=== PATIENT | male | born 1935 | race Caucasian/White ===

== ENCOUNTER 2020-04-11 04:36 | Day surgery (SDC) | payer OTHER, MEDICARE ==
[2020-04-08 16:34] VITALS: BMI 25.8
[2020-04-11] MEDS ORDERED: LIDOCAINE HCL/PF 2% SDV 5ML VIAL INF ONE (14:04)
[2020-04-11] MEDS ORDERED: BUPIVACAINE HCL/PF 0.75% 10 ML VIAL NR ONE (14:05)
[2020-04-11] MEDS ORDERED: IOHEXOL 180 MG/1 ML ML IJ ONE (14:05)
[2020-04-11 14:36] VITALS: TEMP 98
[2020-04-11 15:21] VITALS: BP 133/81; PULSE 63
== END 2020-04-11 15:05 | disposition home or self-care (01) ==
LOC: JASU-SURG 04:36
PROVIDERS: ATTEND Pain Medicine Pain Medicine
PROC: 3E0T33Z Introduction of Anti-inflammatory into Peripheral Nerves and Plexi, Percutaneous Approach (ICD-10-PCS; 2020-04-11)
PROC: 3E0T3BZ Introduction of Anesthetic Agent into Peripheral Nerves and Plexi, Percutaneous Approach (ICD-10-PCS; principal; 2020-04-11 14:30)
DX: M47.816 Spondylosis without myelopathy or radiculopathy, lumbar region (principal)
CPT/HCPCS: 76000-TC-FY

== ENCOUNTER 2020-05-09 04:36 | Day surgery (SDC) | payer OTHER, MEDICARE ==
[2020-05-07 15:44] VITALS: BMI 25.8
[2020-05-09] MEDS ORDERED: LIDOCAINE HCL 1% PRESERVATIVE FREE - 30ML VIAL IJ ONE (12:50)
[2020-05-09] MEDS ORDERED: BUPIVACAINE HCL/PF 0.75% 10 ML VIAL NR ONE (12:50)
[2020-05-09] MEDS ORDERED: IOHEXOL 180 MG/1 ML ML IJ ONE (12:50)
[2020-05-09 15:19] VITALS: BP 130/70; PULSE 68; TEMP 97.8
== END 2020-05-09 14:30 | disposition home or self-care (01) ==
LOC: JASU-SURG 04:36
PROVIDERS: ATTEND Pain Medicine Pain Medicine
PROC: BR16YZZ Fluoroscopy of Lumbar Facet Joint(s) using Other Contrast (ICD-10-PCS; 2020-05-09)
PROC: 3E0T3BZ Introduction of Anesthetic Agent into Peripheral Nerves and Plexi, Percutaneous Approach (ICD-10-PCS; principal; 2020-05-09 12:00)
DX: M47.816 Spondylosis without myelopathy or radiculopathy, lumbar region (principal)
CPT/HCPCS: 76000-TC-FY

== ENCOUNTER 2022-05-12 20:13 | Inpatient (IN) | payer OTHER, MEDICARE ==
[2022-05-12 20:30] VITALS: BMI 26.5
[2022-05-12] MEDS ORDERED: LACTATED RINGERS SOLUTION 1000 ML INFUS.BAG IV ONE (21:42)
[2022-05-12] MEDS ORDERED: ACETAMINOPHEN 1000 MG/100 ML BAG IVPB ONE (21:43)
[2022-05-12 21:54] LABS: VENOUS BASE EXCESS 2.1 mmol/L (-2-2); VENOUS O2 SATURATION 34.2 % (70-80); VENOUS PCO2 54.1 mmHg (38-52); VENOUS PH 7.348 (7.310-7.410)
[2022-05-12 22:03] LABS: BASO % 0.4 % (0-2.0); EOS % 1.1 % (0-4.5); HEMATOCRIT 45.3 % (35.4-49); LYMPH % 16.9 % (8-40); MCH 30.9 pg (25.7-33.7); MEAN CELL VOLUME 93.7 fl (80-96); MEAN PLT VOLUME 9.1 fl (7.5-11.1); NEUT % 71.6 % (42.8-82.8); PLATELET COUNT 195 10^3/uL (134-434); RBC 4.84 M/mm3 (4.00-5.60); RDW 15.2 % (11.9-15.9)
[2022-05-12] MEDS ORDERED: ACETAMINOPHEN INJECTION 100 ML IVPB ONE (22:08)
[2022-05-12 22:14] LABS: CALCIUM 9.8 mg/dL (8.5-10.1)
[2022-05-12 22:15] LABS: ALBUMIN 2.9 g/dl (3.4-5.0); BLOOD UREA NITROGEN 18.2 mg/dL (7-18); MAGNESIUM 2.3 mg/dL (1.8-2.4)
[2022-05-12 22:18] LABS: CREATININE 0.9 mg/dL (0.55-1.3); INR 1.05 (0.83-1.09); PROTHROMBIN TIME (PATIENT) 12.2 SEC (9.7-13.0)
[2022-05-12 22:20] LABS: BILIRUBIN,TOTAL 0.5 mg/dL (0.2-1)
[2022-05-12 22:21] LABS: ACTIVATED PTT 32.9 SECONDS (25.2-36.5)
[2022-05-12 23:15] LABS: EPI CELLS 3 /uL (0-25.1); HYALINE CASTS 0 /uL (0-3.1); URINE APPEARANCE CLEAR; URINE BACTERIA 2 /uL (0-1359); URINE BILIRUBIN NEGATIVE (NEGATIVE); URINE COLOR YELLOW; URINE GLUCOSE (UA) NEGATIVE (NEGATIVE); URINE KETONE NEGATIVE (NEGATIVE); URINE LEUK ESTERASE NEGATIVE (NEGATIVE); URINE NITRITE NEGATIVE (NEGATIVE); URINE PROTEIN NEGATIVE (NEGATIVE); URINE RBC 40 /uL (0-23.9); URINE WBC 3 /uL (0-25.8)
[2022-05-13] MEDS ORDERED: morphine CARPU-JECT 2 MG/1 ML DISP.SYRIN IVPUSH ONE (00:59)
[2022-05-13] MEDS ORDERED: ACETAMINOPHEN 325 MG TABLET (FP) PO PRN (01:10)
[2022-05-13] MEDS ORDERED: SODIUM CHLORIDE 0.45% 1,000 ML IV SCH (01:15)
[2022-05-13 07:26] LABS: CALCIUM 9.5 mg/dL (8.5-10.1)
[2022-05-13 07:27] LABS: ALBUMIN 2.5 g/dl (3.4-5.0); BLOOD UREA NITROGEN 17.9 mg/dL (7-18)
[2022-05-13 07:30] LABS: CREATININE 0.8 mg/dL (0.55-1.3)
[2022-05-13 07:31] LABS: BILIRUBIN,TOTAL 0.7 mg/dL (0.2-1)
[2022-05-13 07:32] LABS: TOT PROT 5.9 g/dl (6.4-8.2)
[2022-05-13] MEDS: MEMANTINE HCL 10 MG TABLET (FP) PO SCH ×2 (11:15→21:44)
[2022-05-13] MEDS: ENZALUTAMIDE 80 MG PO SCH (20:24)
[2022-05-13] MEDS: HEPARIN NA (PORCINE) 5,000 UNITS/ML 1ML VIAL SQ SCH (21:44)
[2022-05-14] MEDS ORDERED: GABAPENTIN 100 MG CAPSULE PO SCH (06:00)
[2022-05-14] MEDS: GABAPENTIN 100 MG CAPSULE PO SCH ×3 (06:27→22:56)
[2022-05-14] MEDS: HEPARIN NA (PORCINE) 5,000 UNITS/ML 1ML VIAL SQ SCH ×2 (10:00→22:56)
[2022-05-14] MEDS ORDERED: PATIENT'S OWN MEDICATION (NON-FORMULARY) (Enzalutamide [Xtandi] 80 MG Tablet) PO SCH (10:00)
[2022-05-14] MEDS ORDERED: METHIMAZOLE 10 MG TABLET PO SCH (10:00)
[2022-05-14] MEDS: MEMANTINE HCL 10 MG TABLET (FP) PO SCH ×2 (10:00→22:56)
[2022-05-14] MEDS: ENZALUTAMIDE 80 MG PO SCH (10:00)
[2022-05-14] MEDS: METHIMAZOLE 5 MG TABLET PO SCH (14:34)
[2022-05-15] MEDS: GABAPENTIN 100 MG CAPSULE PO SCH ×3 (06:32→21:38)
[2022-05-15] MEDS: HEPARIN NA (PORCINE) 5,000 UNITS/ML 1ML VIAL SQ SCH ×2 (09:43→21:39)
[2022-05-15] MEDS: MEMANTINE HCL 10 MG TABLET (FP) PO SCH ×2 (09:44→21:38)
[2022-05-15] MEDS: METHIMAZOLE 5 MG TABLET PO SCH (09:44)
[2022-05-15] MEDS: ENZALUTAMIDE 80 MG PO SCH (09:45)
[2022-05-16] MEDS: GABAPENTIN 100 MG CAPSULE PO SCH ×3 (06:06→21:29)
[2022-05-16] MEDS: HEPARIN NA (PORCINE) 5,000 UNITS/ML 1ML VIAL SQ SCH ×2 (09:55→21:30)
[2022-05-16] MEDS: MEMANTINE HCL 10 MG TABLET (FP) PO SCH ×2 (09:56→21:29)
[2022-05-16] MEDS: METHIMAZOLE 5 MG TABLET PO SCH (09:57)
[2022-05-16] MEDS: ENZALUTAMIDE 80 MG PO SCH (09:58)
[2022-05-17] MEDS: GABAPENTIN 100 MG CAPSULE PO SCH ×2 (05:37→13:25)
[2022-05-17] MEDS: METHIMAZOLE 5 MG TABLET PO SCH (10:17)
[2022-05-17] MEDS: HEPARIN NA (PORCINE) 5,000 UNITS/ML 1ML VIAL SQ SCH (10:19)
[2022-05-17] MEDS: MEMANTINE HCL 10 MG TABLET (FP) PO SCH (10:19)
[2022-05-17] MEDS: ENZALUTAMIDE 80 MG PO SCH (10:20)
[2022-05-17] MEDS: CEFTRIAXONE 1 GM in DEXTROSE 5%-WATER - 50 ML IVPB SCH (12:33)
[2022-05-17 15:56] LABS: BASO % 0.3 % (0-2.0); EOS % 1.5 % (0-4.5); HEMATOCRIT 37.5 % (35.4-49); HEMOGLOBIN 12.5 GM/dL (11.7-16.9); LYMPH % 14.9 % (8-40); MCH 29.9 pg (25.7-33.7); MCHC 33.3 g/dl (32.0-35.9); MEAN CELL VOLUME 89.6 fl (80-96); MEAN PLT VOLUME 9.3 fl (7.5-11.1); MONO % 10.1 % (3.8-10.2); NEUT % 73.2 % (42.8-82.8); PLATELET COUNT 196 10^3/uL (134-434); RBC 4.19 M/mm3 (4.00-5.60); RDW 14.6 % (11.9-15.9); WHITE BLOOD COUNT 5.5 K/mm3 (4.0-10.0)
[2022-05-17 16:21] LABS: CALCIUM 9.1 mg/dL (8.5-10.1)
[2022-05-17 16:22] LABS: ALBUMIN 2.3 g/dl (3.4-5.0); BLOOD UREA NITROGEN 17.1 mg/dL (7-18)
[2022-05-17 16:25] LABS: CREATININE 0.9 mg/dL (0.55-1.3)
[2022-05-17 16:26] LABS: BILIRUBIN,TOTAL 0.4 mg/dL (0.2-1)
[2022-05-17 16:27] LABS: TOT PROT 5.7 g/dl (6.4-8.2)
[2022-05-18] MEDS: MEMANTINE HCL 10 MG TABLET (FP) PO SCH ×3 (10:49→21:55)
[2022-05-18] MEDS: ENZALUTAMIDE 80 MG PO SCH (10:50)
[2022-05-18] MEDS: METHIMAZOLE 5 MG TABLET PO SCH (10:51)
[2022-05-18] MEDS: CEFTRIAXONE 1 GM in DEXTROSE 5%-WATER - 50 ML IVPB SCH (10:52)
[2022-05-18] MEDS: HEPARIN NA (PORCINE) 5,000 UNITS/ML 1ML VIAL SQ SCH ×3 (10:53→23:31)
[2022-05-18] MEDS: GABAPENTIN 100 MG CAPSULE PO SCH ×4 (13:28→23:32)
[2022-05-19] MEDS: GABAPENTIN 100 MG CAPSULE PO SCH ×3 (06:11→21:57)
[2022-05-19] MEDS: CEFTRIAXONE 1 GM in DEXTROSE 5%-WATER - 50 ML IVPB SCH (09:24)
[2022-05-19] MEDS: ENZALUTAMIDE 80 MG PO SCH (09:25)
[2022-05-19] MEDS: METHIMAZOLE 5 MG TABLET PO SCH (09:25)
[2022-05-19] MEDS: HEPARIN NA (PORCINE) 5,000 UNITS/ML 1ML VIAL SQ SCH ×2 (09:25→21:56)
[2022-05-19] MEDS: MEMANTINE HCL 10 MG TABLET (FP) PO SCH ×2 (09:25→21:56)
[2022-05-20] MEDS: GABAPENTIN 100 MG CAPSULE PO SCH ×3 (06:48→21:57)
[2022-05-20] MEDS: ENZALUTAMIDE 80 MG PO SCH (10:35)
[2022-05-20] MEDS: HEPARIN NA (PORCINE) 5,000 UNITS/ML 1ML VIAL SQ SCH (10:35)
[2022-05-20] MEDS: MEMANTINE HCL 10 MG TABLET (FP) PO SCH ×2 (10:35→21:58)
[2022-05-20] MEDS: CEFTRIAXONE 1 GM in DEXTROSE 5%-WATER - 50 ML IVPB SCH (10:35)
[2022-05-20] MEDS: METHIMAZOLE 5 MG TABLET PO SCH (10:36)
[2022-05-21] MEDS: GABAPENTIN 100 MG CAPSULE PO SCH ×3 (06:24→21:33)
[2022-05-21] MEDS: METHIMAZOLE 5 MG TABLET PO SCH (09:17)
[2022-05-21] MEDS: MEMANTINE HCL 10 MG TABLET (FP) PO SCH ×2 (09:17→21:33)
[2022-05-21] MEDS: CEFTRIAXONE 1 GM in DEXTROSE 5%-WATER - 50 ML IVPB SCH (09:18)
[2022-05-21] MEDS: ENZALUTAMIDE 80 MG PO SCH (09:20)
[2022-05-21 23:49] VITALS: RESP 18
[2022-05-22] MEDS: GABAPENTIN 100 MG CAPSULE PO SCH ×3 (05:23→22:23)
[2022-05-22] MEDS: MEMANTINE HCL 10 MG TABLET (FP) PO SCH ×2 (10:10→22:23)
[2022-05-22] MEDS: ENZALUTAMIDE 80 MG PO SCH ×2 (10:12→10:15)
[2022-05-22] MEDS: CEFTRIAXONE 1 GM in DEXTROSE 5%-WATER - 50 ML IVPB SCH (10:12)
[2022-05-22] MEDS: METHIMAZOLE 5 MG TABLET PO SCH (10:13)
[2022-05-22] MEDS: ENZALUTAMIDE 40 MG PO SCH (14:31)
[2022-05-23] MEDS: GABAPENTIN 100 MG CAPSULE PO SCH ×3 (06:36→23:31)
[2022-05-23] MEDS: MEMANTINE HCL 10 MG TABLET (FP) PO SCH ×2 (10:03→23:31)
[2022-05-23] MEDS: ENZALUTAMIDE 40 MG PO SCH (10:03)
[2022-05-23] MEDS: CEFTRIAXONE 1 GM in DEXTROSE 5%-WATER - 50 ML IVPB SCH (10:03)
[2022-05-23] MEDS: METHIMAZOLE 5 MG TABLET PO SCH (10:03)
[2022-05-24] MEDS: GABAPENTIN 100 MG CAPSULE PO SCH ×4 (06:37→21:32)
[2022-05-24] MEDS: MEMANTINE HCL 10 MG TABLET (FP) PO SCH ×2 (09:09→21:32)
[2022-05-24] MEDS: METHIMAZOLE 5 MG TABLET PO SCH (09:10)
[2022-05-24] MEDS: CEFTRIAXONE 1 GM in DEXTROSE 5%-WATER - 50 ML IVPB SCH (09:10)
[2022-05-24] MEDS: ENZALUTAMIDE 40 MG PO SCH (09:11)
[2022-05-24 22:20] VITALS: BP 127/68; PULSE 62; TEMP 98.1
== END 2022-05-25 02:30 | DRG 542 ==
LOC: JER 20:13 → JERBED 05-13 00:54 → J6S 05-13 18:38
PROVIDERS: ADMIT Specialist; ATTEND Specialist
DX: C79.51 Secondary malignant neoplasm of bone (principal); J69.0 Pneumonitis due to inhalation of food and vomit; C77.9 Secondary and unspecified malignant neoplasm of lymph node, unspecified; N39.0 Urinary tract infection, site not specified; C61 Malignant neoplasm of prostate; F03.90 Unspecified dementia, unspecified severity, without behavioral disturbance, psychotic disturbance, mood disturbance, and anxiety; R32 Unspecified urinary incontinence; R62.7 Adult failure to thrive; Z68.24 Body mass index [BMI] 24.0-24.9, adult; M54.9 Dorsalgia, unspecified; R53.1 Weakness; E86.0 Dehydration; B95.2 Enterococcus as the cause of diseases classified elsewhere
CPT/HCPCS: 0241U-QW; 36415; 70450-TC; 71045-TC-FY; 72131-TC; 80053; 81003; 82803; 83735; 84443; 84484; 85025; 85610; 85730; 86850; 86900; 86901; 87040; 87086; 87186; 93005; 93010; 94010; 97116-GP; 97162-GP; 99285-25; C9803-CS; J1644; U0003; U0005